=== PATIENT | female | born 1980 | race Caucasian/White ===

== ENCOUNTER → 2017-06-26 | Outpatient (CLI) | payer OTHER ==
--- NOTE | 2017-06-26 15:34 | MAM ---
EXAM DESCRIPTION: 3D Diagnostic, Bilateral CLINICAL HISTORY: 36 yearsFemaleABNORMAL SYMPTOMS . Bilateral black-green color discharge from nipples for one year. No family history of breast cancer. Premenopausal.. COMPARISON: Baseline study at this facility.. No prior reports available. Bilateral targeted breast ultrasound following this examination. TECHNIQUE: Bilateral CC and MLO projection full-field images, 3-D tomosynthesis digital mammographic technique. Also bilateral synthesized CC/ MLO full-field images. CAD not utilized. FINDINGS: The breast parenchymal density pattern is: Heterogeneously dense breast tissue, which may obscure small masses. No skin thickening or nipple retraction . Lobulated 1 cm mass in the retroareolar left breast with mostly well-circumscribed and partially less defined margins. Same density as the surrounding fibroglandular tissues. Not associated with calcifications. Bilateral solitary calcifications. Focal asymmetry at the 1200 clock position of the middle third of the right breast approximately 5 cm from the nipple. Not associated with microcalcifications. Same Density as surrounding breast tissue. No definite mass density in the right breast or focal asymmetry in the left breast. No suspicious microcalcifications bilaterally. ULTRASOUND: Hypoechoic mass at the 1200 clock position of the right breast 4 cm from the nipple with partially well-circumscribed and partially indistinct margins. Antiparallel and taller than wide orientation. 5.1 x 4.5 x 5.8 mm. Posterior acoustic attenuation. Nonvascular ultrasound Doppler. Could represent fibroadenoma or early neoplasm. Approximately 1 cm medially is a second lesion with mixed echogenicity and mixed posterior acoustic features. 9.6 x 5.1 mm. Scattered cysts in the breast. Nondilated retroareolar ducts, and no retroareolar solid or cystic lesion. Multiple cysts in the retroareolar left breast. Parallel orientation with mostly posterior acoustic enhancement. Dimensions are 1.4 x 1.2 cm. Mostly well-defined and lobulated margins and Parallel orientation. Scattered cysts in the breast. No dilated retroareolar ducts in the left breast. IMPRESSION: BI-RADS CATEGORY 4: SUSPICIOUS. SUB-CATEGORY 4A - LOW SUSPICION FOR MALIGNANCY. Surgical consultation and tissue diagnosis should be considered. The FINDINGS and follow-up plan were reviewed in person with the patient after the ultrasound examination. Written communication explaining the results and follow-up will be mailed to the patient and referring care provider. Electronically signed by: Oren Mccain MD 06/26/2017 3:32 PM CDT
--- NOTE | 2017-06-26 15:38 | US ---
EXAM DESCRIPTION: Breast,Bilateral CLINICAL HISTORY: 36 yearsFemaleABNORMAL FINDINGS. Bilateral green-black colored nipple discharge for one year. No pain. COMPARISON: Digital 3-D tomosynthesis bilateral breast on this visit. TECHNIQUE: Transcutaneous scanning of the bilateral breasts utilizing two-dimensional and Doppler modes. Scanning performed by the graphic technician and Dr. Mccain. FINDINGS: Hypoechoic mass at the 1200 clock position of the right breast 4 cm from the nipple with partially well-circumscribed and partially indistinct margins. Antiparallel and taller than wide orientation. 5.1 x 4.5 x 5.8 mm. Posterior acoustic attenuation. Nonvascular ultrasound Doppler. Could represent fibroadenoma or early neoplasm. Approximately 1 cm medially is a second lesion with mixed echogenicity and mixed posterior acoustic features. 9.6 x 5.1 mm. Scattered cysts in the breast. Nondilated retroareolar ducts, and no retroareolar solid or cystic lesion. Multiple cysts in the retroareolar left breast. Parallel orientation with mostly posterior acoustic enhancement. Dimensions are 1.4 x 1.2 cm. Mostly well-defined and lobulated margins and parallel orientation. No dilated retroareolar ducts in the left breast. IMPRESSION: BI-RADS CATEGORY 4: SUSPICIOUS. SUB-CATEGORY 4A - LOW SUSPICION FOR MALIGNANCY. Surgical consultation and tissue diagnosis should be considered. Please refer to bilateral digital 3-D breast tomosynthesis examination and report on this visit. The findings and the follow-up plan were reviewed in person with the patient after the examination. Written communication explaining the results and follow-up will be mailed to the patient and referring care provider. Electronically signed by: Oren Mccain MD 06/26/2017 3:36 PM CDT
== END | disposition home or self-care (01) ==
LOC: US 16:34 → EEVIPCON 16:34
PROVIDERS: ATTEND Family Medicine
DX: Z12.31 Encounter for screening mammogram for malignant neoplasm of breast (principal); N63 Unspecified lump in breast

== ENCOUNTER → 2017-07-19 | Outpatient (CLI) | payer OTHER ==
--- NOTE | 2017-07-19 13:26 | OP ---
DATE OF PROCEDURE: 07/19/17 PREOPERATIVE DIAGNOSIS: 1. Abnormal right mammogram with mass at 12 o'clock and then one just medial to that. POSTOPERATIVE DIAGNOSIS: 1. Abnormal right mammogram with mass at 12 o'clock and then one just medial to that. PROCEDURE: 1. Sonographically guided needle core biopsy of two masses. SURGEON: Jose Mir MD. JAILER/TRAINING OFFICER: None. ANESTHESIA: Local infiltration of 1% lidocaine. INDICATION: The patient has had bilateral drainage from her nipples. Workup has revealed two masses, one at the 12 o'clock and one medial to that in the right breast and multiple cysts in the left breast. She was brought to the Ultrasound Suite today for sonographically guided biopsy. FINDINGS: Multiple cores were taken with the ultrasound revealing the biopsy needle within the masses. The second mass in the upper inner quadrant seemed to somewhat compress and get smaller after the biopsy. PROCEDURE: The patient was placed in the supine position. The right breast was examined using the ultrasound device. The breast skin medial to the ultrasound device matt was prepped with Betadine and draped with sterile towels. Local infiltration of anesthesia was obtained with 1% lidocaine. A stab wound was made with a 15 blade. The 25-gauge needle was advanced to the first mass and a small amount of lidocaine was infiltrated in the mass. Multiple passes were made with the biopsy needle and specimens were taken. The ultrasound device was then adjusted to identify the second lesion. The same procedure with first local infiltration of anesthesia, then with biopsy needle used to obtain the specimen. Hemostasis was obtained with pressure and then a single suture of 4-0 Nylon in the stab wound. Sterile pressure dressing was applied. The patient tolerated the procedure well. Estimated blood loss was approximately 10 to 20 mL. All sponge, needle and instrument counts were correct. #[id number] [facility]
--- NOTE | 2017-07-19 14:30 | US ---
EXAM DESCRIPTION: Biopsy/Needle Guidance: Ultrasound. CLINICAL HISTORY: 36 yearsFemaleRT BREAST MASS X 2 COMPARISON: Diagnostic ultrasound of the right breast on 06/26/2017. TECHNIQUE: The procedure was performed by Dr. Mir. Repeat ultrasound localized the lesions at the 1200 clock position of the right breast. Sterile preparation. Sterile ultrasound guidance. FINDINGS: Again noted is hypoechoic lesion with nonparallel orientation and minimal posterior acoustic attenuation at the 1200 clock position of the right breast. Orthogonal images during the procedure show the echogenic needle within the mass. Adequate core samples were obtained. A second nearby mass which appears partially cystic with parallel orientation and enhancing posterior features appear to diminish after needle passage.. IMPRESSION: Successful ultrasound-guided needle core biopsy of two lesions in the right breast at the 1200 clock position. Pathology examination at remote facility, results pending. Electronically signed by: Oren Mccain MD 07/19/2017 2:29 PM CDT
== END | disposition home or self-care (01) ==
LOC: US 12:31
PROVIDERS: ATTEND Surgery
PROC: 0HBT3ZX Excision of Right Breast, Percutaneous Approach, Diagnostic (ICD-10-PCS; principal; 2017-07-19)
DX: N63.10 Unspecified lump in the right breast, unspecified quadrant (principal)

== ENCOUNTER 2017-10-27 14:28 | Emergency (ER) | payer SELFPAY ==
[2017-10-27 14:36] VITALS: BP 119/78
--- NOTE | 2017-10-27 15:07 | RAD ---
Procedure: XR CHEST 2 VIEWS Exam Date: 10/27/2017 2:43 PM TECHNICAL SOLUTIONS CONSULTANT Ordering Provider: Dominic Chew Clinical Indication: Posterior thoracic pain Comparison: None Findings: Mild bibasilar subsegmental atelectasis is present. Otherwise, lungs are clear and well-aerated. No pleural effusion or pneumothorax. Cardiac silhouette is normal in size. Impression: Bibasilar subsegmental atelectasis. Electronically signed by: Damián Matthews MD 10/27/2017 3:06 PM TECHNICAL SOLUTIONS CONSULTANT
[2017-10-27] MEDS ORDERED: predniSONE 20 MG TAB PO ONE (15:35)
[2017-10-27] MEDS ORDERED: KETOROLAC TROMETHAMINE INJ 30 MG/ML VIAL IM ONE (15:35)
[2017-10-27] MEDS ORDERED: CYCLOBENZAPRINE HCL 10 MG TAB PO ONE (15:36)
--- NOTE | 2017-10-27 15:38 | ED.PDOC ---
History of Present Illness - General Chief Complaint: Respiratory Problem Stated Complaint: sob, pain with inspiration Time Seen by Provider: 10/27/17 14:42 Source: patient Exam Limitations: no limitations - History of Present Illness Initial Comments: the patient is a 37-year-old female presenting to the emergency room secondary to pain to the right of her thoracic spine approximately adjacent to T8 and T9. The pain shoots around her rib cage when she goes to take a big deep breath or cough. It is worsened a little bit with movement. She has not had any fever and no productive cough. She does not remember injuring it. It has been bothering her for the last 24 hours. She has not had this problem before. No recent trauma. No history of any asthma. Vital signs are good and she is oxygenating well. No evidence of any swelling or pain of the lower extremities. No neurological changes. Timing/Duration: 24 hours Severity: moderate Improving Factors: nothing Worsening Factors: movement Associated Symptoms: denies symptoms Allergies/Adverse Reactions: Allergies NO KNOWN ALLERGY Allergy (Verified 10/27/17 14:41) Home Medications: Ambulatory Orders Cyclobenzaprine HCl [Flexeril] 5 mg PO TID PRN #30 tab 10/27/17 predniSONE [Prednisone] 20 mg PO DAILY #7 tab 10/27/17 Review of Systems - Review of Systems Constitutional: States: no symptoms reported EENTM: States: no symptoms reported Respiratory: States: no symptoms reported Cardiology: States: chest pain Gastrointestinal/Abdominal: States: no symptoms reported Genitourinary: States: no symptoms reported Musculoskeletal: States: back pain Skin: States: no symptoms reported Neurological: States: no symptoms reported Endocrine: States: no symptoms reported All other Systems: No Change from Baseline Past Medical History (General) - Patient Medical History Hx Asthma: No Surgical History: other - Vaccination History Hx Influenza Vaccination: Yes - Social History Hx Tobacco Use: Yes Hx Alcohol Use: No Hx Substance Use: No Hx Substance Use Treatment: No Hx Depression: No - Female History Patient is a Female of Child Bearing Age (10 -59 yrs old): Yes - Triage Comment ED Triage Comment: tubal ligation Family Medical History - Family History Mother Family History: No Known Living Status: Still Living Physical Exam - Physical Exam General Appearance: Alert, Anxious, No apparent distress Ears, Nose, Throat: hearing grossly normal, normal ENT inspection, normal pharynx Neck: full range of motion, supple Respiratory: lungs clear, normal breath sounds, no respiratory distress, no accessory muscle use Cardiovascular/Chest: normal peripheral pulses, regular rate, rhythm, no edema Peripheral Pulses: radial,right: 2+, radial,left: 2+ Gastrointestinal/Abdominal: non tender, soft Rectal Exam: deferred Back Exam: no vertebral tenderness, other - the patient does have some discomfort palpation adjacent to the thoracic spine T8 and T9 to the right. No palpable mass but there is some muscle spasm. No evidence of any bruising. No rash. Extremity: normal range of motion, non-tender, normal inspection, no pedal edema , normal capillary refill Neurologic: arcgis developer II-XII nml as tested, alert, normal mood/affect, oriented x 3 Skin Exam: normal color Comments: Vital Signs - 24 hr 10/27/17 14:35 Temperature 98.7 F Pulse Rate [ 92 H Left Radial] Respiratory 16 Rate Blood Pressure 119/78 [Left Arm] O2 Sat by Pulse 97 Oximetry Progress - Progress Progress: 10/27/17 15:40 the patient's 37-year-old female presenting to emergency room secondary to upper right-sided back pain that is of an uncertain source. This is possibly a mild pinched nerve versus a strained muscle versus pleurisy. The patient will be treated with a muscle relaxer and anti-inflammatory. She needs to take big deep breaths and make herself cough. She needs to do stretching exercises. Topical heat may help. ER warnings were given for any significant worsening. X-ray is reassuring. she can follow up with her primary care doctor early next week. - Results/Orders Results/Orders: two-view chest x-ray shows no acute pathology. No obvious deformities of the thoracic spine and noissues with the lung medrano. Departure - Departure Clinical Impression: Upper back pain on right side Disposition: Discharge to Home or Self Care Condition: Fair Departure Forms: ED Discharge - Pt. Copy, Patient Portal Self Enrollment Instructions: DI for Low Back Pain Diet: regular diet Activity: increase activity as tolerated Referrals: Chula Parrish NP [Primary Care Provider] - 1-5 Days Prescriptions: Cyclobenzaprine HCl [Flexeril] 5 mg PO TID PRN #30 tab PRN Reason: Muscle Spasms predniSONE [Prednisone] 20 mg PO DAILY #7 tab Home Medications: Ambulatory Orders Cyclobenzaprine HCl [Flexeril] 5 mg PO TID PRN #30 tab 10/27/17 predniSONE [Prednisone] 20 mg PO DAILY #7 tab 10/27/17 Additional Instructions: the patient's 37-year-old female presenting to emergency room secondary to upper right-sided back pain that is of an uncertain source. This is possibly a mild pinched nerve versus a strained muscle versus pleurisy. The patient will be treated with a muscle relaxer and anti-inflammatory. She needs to take big deep breaths and make herself cough. She needs to do stretching exercises. Topical heat may help. ER warnings were given for any significant worsening. X-ray is reassuring. she can follow up with her primary care doctor early next week. additionally the patient should make sure she is not developing a rash in the area as this can indicate the onset of shingles.
[2017-10-27 16:10] VITALS: TEMP 98; O2SAT 98
== END 2017-10-27 16:05 | disposition home or self-care (01) ==
LOC: ER 14:28
DX: M54.6 Pain in thoracic spine (principal)
CPT/HCPCS: 71046; J1885; J7512

== ENCOUNTER 2017-11-19 08:33 | Emergency (ER) | payer SELFPAY ==
[2017-11-19 08:49] VITALS: BP 133/89; TEMP 98.1; O2SAT 99
--- NOTE | 2017-11-19 08:52 | ED.PDOC ---
History of Present Illness - General Chief Complaint: Lower Extremity Injury Stated Complaint: L ankle injury Time Seen by Provider: 11/19/17 08:36 Source: patient Exam Limitations: no limitations - History of Present Illness Initial Comments: Cici Nation 37 y/o female came to ER with sharp pains left ankle after she had bee jumping on the bounce floor with her daughter twisting left ankle after landing on the floor no other injured areas.She had pain on weight bearing left ankle.No numbness or weakness. Occurred: yesterday Pain - Lower Extremity: moderate: Left Ankle Method of Injury: twisted Improving Factors: rest Worsening Factors: movement Allergies/Adverse Reactions: Allergies NO KNOWN ALLERGY Allergy (Verified 11/19/17 08:49) Home Medications: Ambulatory Orders Acetaminophen W/ Codeine [Tylenol w/Codeine 300-30 mg] 1 tab PO TID #10 tab 09/24 Review of Systems - Review of Systems Constitutional: States: no symptoms reported EENTM: States: no symptoms reported Respiratory: States: no symptoms reported Cardiology: States: no symptoms reported Gastrointestinal/Abdominal: States: no symptoms reported Genitourinary: States: no symptoms reported Musculoskeletal: States: see HPI Skin: States: no symptoms reported Neurological: States: no symptoms reported All other Systems: Reviewed and Negative, No Change from Baseline Past Medical History (General) - Patient Medical History Hx Stroke: No Hx Asthma: No Hx Congestive Heart Failure: No Hx Diabetes: No Surgical History: other - btl - Vaccination History Hx Influenza Vaccination: Yes - 2016 Hx Pneumococcal Vaccination: No - Social History Hx Tobacco Use: Yes Hx Alcohol Use: No Hx Substance Use: No Hx Substance Use Treatment: No Hx Depression: No - Female History Patient is a Female of Child Bearing Age (10 -59 yrs old): Yes Hx Last Menstrual Period: 11/19/17 Patient : No Family Medical History - Family History Mother Family History: No Known Living Status: Still Living Physical Exam - Physical Exam General Appearance: Alert, Comfortable, No apparent distress Eyes, Ears, Nose, Throat: normal ENT inspection Neck: non-tender, supple, normal inspection Cardiovascular/Respiratory: regular rate, rhythm, no M/R/G, normal peripheral pulses, normal breath sounds Back: normal inspection, no CVA tenderness, no vertebral tenderness Thigh/Hip: normal inspection, non-tender, no evidence of injury Leg: normal inspection, non-tender, no evidence of injury Knee: normal inspection, non-tender, no evidence of injury Ankle: normal inspection, bone tenderness - lateral malleolus left, limited ROM - painful lef ankle, pain - left ankle Progress - Progress Progress: 11/19/17 08:54 Last Vital Signs Temp 98.1 F 11/19/17 08:41 Pulse 81 11/19/17 08:41 Resp 18 11/19/17 08:41 BP 133/89 11/19/17 08:41 Pulse Ox 99 11/19/17 08:41 - EKG/XRAY/CT XRAY: ankle - no fracture left ankle Departure - Departure Clinical Impression: Sprain of ankle, left Qualifiers: Encounter type: initial encounter Involved ligament of ankle: unspecified ligament Qualified Code(s): S93.402A - Sprain of unspecified ligament of left ankle, initial encounter Time of Disposition: 09:21 Disposition: Discharge to Home or Self Care Condition: Good Departure Forms: ED Discharge - Pt. Copy, Patient Portal Self Enrollment Instructions: Ankle Sprain, DI for Ankle Sprain Referrals: Chula Parrish NP [Primary Care Provider] - 1-2 Weeks Prescriptions: Acetaminophen W/ Codeine [Tylenol w/Codeine 300-30 mg] 1 tab PO TID #10 tab Home Medications: Ambulatory Orders Acetaminophen W/ Codeine [Tylenol w/Codeine 300-30 mg] 1 tab PO TID #10 tab 09/24 Additional Instructions: Continue with ice pack 15 minutes 3 x a day during waking hours only for 3 days; May also take over the counter Aleve 1-2 tablets by mouth am/pm as needed for pain;Elevate right leg 20 degrees at bedtime until better
--- NOTE | 2017-11-19 09:17 | RAD ---
EXAM DESCRIPTION: Ankle,Left 3 Views CLINICAL HISTORY: 37 yearsFemale, pain COMPARISON: None. IMPRESSION: 3 views of the left ankle demonstrate no evidence of acute fracture, dislocation, or destructive osseous lesion. Alignment appears maintained. No radiographic evidence of tibiotalar widening. There is no focal soft tissue swelling. Electronically signed by: Jhoan Mendes MD 11/19/2017 9:16 AM [facility]
== END 2017-11-19 09:39 | disposition home or self-care (01) ==
LOC: ER 08:33
DX: S93.402A Sprain of unspecified ligament of left ankle, initial encounter (principal); X50.1XXA Overexertion from prolonged static or awkward postures, initial encounter; Y92.9 Unspecified place or not applicable

== ENCOUNTER → 2018-01-22 | Outpatient (CLI) | payer OTHER ==
--- NOTE | 2018-01-22 15:24 | MAM ---
EXAM DESCRIPTION: 3D Diagnostic, Right: Digital Mammography CLINICAL HISTORY: 37 yearsFemale6 MONTH F/U FOR NEG BX . Occasional nipple discharge continues. COMPARISON: 3-D tomosynthesis bilateral diagnostic study 06/26/2017. Bilateral targeted breast ultrasound on the same visit. Ultrasound-guided needle core biopsy right breast 07/19/2017.. Reports from prior examinations also reviewed. TECHNIQUE: Right breast CC LM MLO projection full-field images, 3-D tomosynthesis digital mammographic technique. Also bilateral synthesized CC MLO LM full-field images. CAD not utilized. FINDINGS: Right breast parenchymal density pattern is: Heterogeneously dense breast tissue, which may obscure small masses. No skin thickening or nipple retraction coarse calcifications in the right breast. Small regions of focal asymmetry are stable since the prior study. No new focal, stellate mass or density, focal asymmetry , and no suspicious microcalcifications right breast. IMPRESSION: BI-RADS CATEGORY: 2 - BENIGN FINDINGS. FOLLOW UP: Return to routine digital bilateral screening, at age 42. Written communication explaining the IMPRESSION and follow-up, will be mailed to the patient and referring health care provider. According to the [employer], yearly mammograms are recommended starting at age 40 and continuing as long as a woman is in good health. Any breast change noted on a breast self-exam should be reported promptly to the patient's healthcare provider. Breast MRI is recommended for women with an approximately 20-25% or greater lifetime risk of breast cancer, including women with a strong family history of breast or ovarian cancer and women who have been treated for Hodgkin's disease. A negative mammographic report should not delay tissue diagnosis in patients with significant clinical history or physical findings. Extremely dense breast tissue limits the sensitivity of digital mammography. Electronically signed by: Oren Mccain MD 01/22/2018 3:23 PM CDT
== END ==
LOC: US 13:30
PROVIDERS: ATTEND Family Medicine
DX: N63.0 Unspecified lump in unspecified breast (principal)
CPT/HCPCS: 77065; G0279